=== PATIENT | male | born 1950 | race Caucasian/White ===

== ENCOUNTER 2017-09-09 13:56 | Outpatient (CLI) | payer BC, SELFPAY ==
--- NOTE | 2017-09-10 01:28 | HP ---
DATE OF SERVICE: 09/09/2017 HISTORY OF PRESENT ILLNESS: Mr. Howard Klein is a very pleasant 67-year-old gentleman who presents to the [facility] for evaluation of an ulceration of the left lower leg. The patient states that the ulceration of his left lower leg has been present for approximately two months. He states that he has had erythema, however, of his right and left lower legs for approximately 1 year. He states that blisters preceded the development of the ulceration of his left lower leg. He states that the blisters popped and he began applying Neosporin. He states that he was seen by Dr. Ring and told to discontinue the application of Neosporin. The patient states that the ulceration, however, continued to worsen in its appearance, even after stopping the application of Neosporin to the ulceration. The patient states he has been cleaning the ulceration and treating the ulceration with Bactine spray. He states he has been leaving his wound open to air. PAST MEDICAL HISTORY: 1. Hypertension. 2. History of melanoma of left forearm, status post surgery. PAST SURGICAL HISTORY: 1. Right rotator cuff surgery. 2. Left rotator cuff surgery. 3. Surgery for melanoma of left forearm. 4. Right knee arthroscopic surgery x2. MEDICATIONS: 1. Asacol. 2. Nifedipine 3. Simvastatin. 4. Enalapril. 5. Ibuprofen. ALLERGIES: No known diagnosed allergies. SOCIAL HISTORY: Significant for tobacco use of 1 pack of cigarettes per day for 10 years. The patient states that he stopped smoking 30 years ago. The patient admits to only the occasional consumption of alcohol. FAMILY HISTORY: Negative for diabetes mellitus or coronary artery disease. PHYSICAL EXAMINATION: VITAL SIGNS: Temperature 98.0, pulse 120, respirations 18, blood pressure 145/ 78. GENERAL: A 67-year-old gentleman sitting on chair in examination room in no acute distress. HEENT: Normocephalic, atraumatic. NECK: No nuchal rigidity. CHEST: Clear to auscultation. CARDIOVASCULAR: Regular rate and rhythm. ABDOMEN: Soft. EXTREMITIES: An ulceration of the left posterior lower leg is present, which measures approximately 5.0 x 5.5 cm. No purulent drainage is associated with the wound. Erythema of the left lower leg is present. No maceration of the skin of the periwound is noted. A pedal pulse is palpable on the left. Mild to moderate edema of the left foot and lower leg is present on exam today. NEUROLOGIC: Grossly nonfocal. ASSESSMENT AND PLAN: 1. Chronic venous hypertension with ulcer and inflammation. Silveron, an ABD, Webril, and the 3M Coban two-layer compression system will be applied to the ulceration of the left lower leg today. The patient states he was previously given a prescription for Levaquin by Dr. Ring. The patient has been asked to continue Levaquin as previously prescribed. I will see Mr. Klein again in one week. The patient has been asked to keep the compression wrap applied in clinic today clean and dry until his follow-up visit in 1 week. The patient understands and is in agreement with the preceding treatment plan. 2. Hypertension. 3. History of melanoma of left forearm, status post surgery. [facility]
[2017-09-13] MEDS ORDERED: Lidocaine 2% Jelly 5 ML TUBE ONE (16:53)
== END 2017-09-09 13:57 | disposition home or self-care (01) ==
LOC: WCC 13:56
PROVIDERS: ATTEND Family Medicine
DX: I87.332 Chronic venous hypertension (idiopathic) with ulcer and inflammation of left lower extremity (principal); L97.929 Non-pressure chronic ulcer of unspecified part of left lower leg with unspecified severity; I10 Essential (primary) hypertension
CPT/HCPCS: 29581; 99203; G0463

== ENCOUNTER 2017-09-20 10:12 | Outpatient (CLI) | payer BC ==
[2017-09-20] MEDS ORDERED: Sodium Chloride 0.9% 15 ML NEB ONE (11:11)
[2017-09-20] MEDS ORDERED: Lidocaine 2% Jelly 5 ML TUBE ONE (11:11)
--- NOTE | 2017-09-20 11:11 | PRG ---
DATE OF SERVICE: 09/20/2017 HISTORY: Mr. Howard Klein is a very pleasant 67-year-old gentleman who presents to the [facility] for evaluation of an ulceration of the left lower leg. The patient previously stated that the ulceration of his left lower leg had been present for approximately 2 months when he initially presented to the [facility] Center. He stated that he had had erythema, however, of his right and left lower legs for approximately 1 year at the time of his initial visit to the Wound Center. He stated that blisters preceded the development of the ulceration of his left lower leg. He stated that the blisters popped, and he began applying Neosporin. He stated that he was seen by Dr. Ring and told to discontinue the application of Neosporin. The patient stated that the ulceration, however, continued to worsen in its appearance even after stopping the application of Neosporin to the ulceration. The patient stated he had been cleaning the ulceration and treating the ulceration with Bactine spray prior to being seen in the Wound Center. He stated that he had also been leaving his wound open to air. After being seen in the Wound Center, Silverlon, an ABD, Webril, and the 3M Coban 2-layer compression system were applied to the ulceration. PHYSICAL EXAMINATION: VITAL SIGNS: Temperature 97.7, pulse 115, respirations 19, blood pressure 154/ 98. EXTREMITIES: An ulceration of the left posterior lower leg is present, which measures approximately 2.0 x 1.0 cm. The dimensions of the wound at the time of the patient's last visit were approximately 5.0 x 5.5 cm. No purulent drainage is associated with the wound. No erythema of the skin of the left lower leg is present. No maceration of the skin of the left lower leg is present. A dorsalis pedis pulse is palpable on the left. No significant edema of the left foot or lower leg is present on exam today. ASSESSMENT AND PLAN: 1. Chronic venous hypertension with ulcer and inflammation. Promogran, Silverlon, an ABD, Webril, and the 3M Coban 2-layer compression system will be applied to the ulceration of the left lower leg today. The patient states that he has completed Levaquin as previously prescribed by Dr. Ring. I will see Mr. Klein again in 1 week. 2. Hypertension. 3. History of melanoma of left forearm, status post surgery. [facility]
== END 2017-09-20 10:13 | disposition home or self-care (01) ==
LOC: WCC 10:12
PROVIDERS: ATTEND Family Medicine
DX: I87.332 Chronic venous hypertension (idiopathic) with ulcer and inflammation of left lower extremity (principal); L97.929 Non-pressure chronic ulcer of unspecified part of left lower leg with unspecified severity; I10 Essential (primary) hypertension; Z85.820 Personal history of malignant melanoma of skin; Z98.890 Other specified postprocedural states
CPT/HCPCS: 29581; A4218

== ENCOUNTER 2017-09-27 09:55 | Outpatient (CLI) | payer BC ==
--- NOTE | 2017-09-27 11:25 | PRG ---
DATE OF SERVICE: 09/27/2017 HISTORY: Mr. Alan. Howard Klein is a very pleasant 67-year-old gentleman who presents to the [facility] for evaluation of an ulceration of the left lower leg. The patient previously stated that the ulce ration of his left lower leg had been present for approximately 2 months when he initially presented to the [facility] Center. He stated that he had had erythema; however of his right and left lower legs fo r approximately 1 year at the time of his initial visit to the Wound Center. He stated that blisters preceded the development of the ulceration of his left lower leg. He stated that the blisters juan m d and he began applying Neosporin. He stated that he was seen by Dr. Ring and told to discontinue t he application of Neosporin. The patient stated that the ulceration, however, continued to worsen in its appearance, even after stopping the application of Neosporin to the ulceration. The patient sta ravindra he had been cleaning the ulceration and treating the ulceration with Bactine spray prior to being seen in the Wound Center. He stated that he had also been leaving his wound open to air. After jaja ng seen in the Wound Center, Silverlon, ABD, Webril, and 3M Coban 2 layer compression system were erika lied to the ulceration. Later, Promogran was added to the patient's regimen. PHYSICAL EXAMINATION: VITAL SIGNS: Temperature 97.9, pulse 117, respirations 19, blood pressure 133/89. EXTREMITIES: An ulceration of the left posterior lower leg is present which measures approximately 1 .0 x 1.5 cm. The dimensions of the wound at the time of the patient's last visit were approximately 2.0 x 1.0 cm. No purulent drainage is associated with the wound. No erythema of the skin surroundin g the wound is present. No maceration of the skin of the periwound is noted. A dorsalis pedis pulse is easily palpable on the left. No significant edema of the left foot or lower leg is present on ex am today. ASSESSMENT AND PLAN: 1. Chronic venous hypertension with ulcer and inflammation. Promogran, Silverlon, 4 x 4's, ABD, Web ril, and 3M Coban two-layer compression system will be applied to the ulceration of the left lower le g today. I will see Mr. Klein again in one week. 2. Hypertension. 3. History of melanoma of left forearm, status post surgery.
== END 2017-09-27 09:56 | disposition home or self-care (01) ==
LOC: WCC 09:55
PROVIDERS: ATTEND Family Medicine
DX: I87.332 Chronic venous hypertension (idiopathic) with ulcer and inflammation of left lower extremity (principal); L97.929 Non-pressure chronic ulcer of unspecified part of left lower leg with unspecified severity; I10 Essential (primary) hypertension; Z98.890 Other specified postprocedural states; Z85.820 Personal history of malignant melanoma of skin
CPT/HCPCS: 29581

== ENCOUNTER 2017-10-04 09:46 | Outpatient (CLI) | payer BC ==
--- NOTE | 2017-10-04 11:41 | PRG ---
DATE OF SERVICE: 10/04/2017 HISTORY: Mr. Howard Klein is a very pleasant 67-year-old gentleman who presents to the [facility] Center for evaluation of an ulceration of the left lower leg. The patient previously stated that the ulceration of his left lower leg had been present for approximately 2 months when he initially presented to the W[facility] Center. He stated that he had had erythema, however, of his right and left lower legs for approximately 1 year at the time of his initial visit to the Wound Center. He stated that blisters preceded the development of the ulceration of his left lower leg. After being seen in the Wound Center, Silverlon, an ABD, Webril, and the 3M Coban 2-layer compression system were applied to the ulceration. Later Promogran was added to the patient's regimen. PHYSICAL EXAMINATION: VITAL SIGNS: Temperature 98.3, pulse 90, respirations 19, blood pressure 186/ 106. EXTREMITIES: An ulceration of the left lower leg is present, which measures approximately 1.0 x 0.5 cm. The dimensions of the wound at the time of the patient's last visit were approximately 1.0 x 1.5 cm. No purulent drainage is associated with the wound. No erythema of the skin surrounding the wound is present. No maceration of the skin of the periwound is noted. A dorsalis pedis pulse is easily palpable on the left. No significant edema of the left foot or lower leg is present on exam today. ASSESSMENT AND PLAN: 1. Chronic venous hypertension with ulcer and inflammation. Promogran, Silverlon, an ABD, Webril, and the 3M Coban two-layer compression system will be applied to the ulceration of the left lower leg today. I will see Mr. Klein again in one week. 2. Hypertension. 3. History of melanoma of left forearm, status post surgery. [facility]
[2017-10-04] MEDS ORDERED: Sodium Chloride 0.9% 15 ML NEB ONE (14:20)
== END 2017-10-04 09:47 | disposition home or self-care (01) ==
LOC: WCC 09:46
PROVIDERS: ATTEND Family Medicine
DX: I87.332 Chronic venous hypertension (idiopathic) with ulcer and inflammation of left lower extremity (principal); L97.929 Non-pressure chronic ulcer of unspecified part of left lower leg with unspecified severity; I10 Essential (primary) hypertension; Z85.820 Personal history of malignant melanoma of skin
CPT/HCPCS: 29581; A4218

== ENCOUNTER 2017-10-13 10:27 | Outpatient (CLI) | payer BC ==
[~2017-10-13 10:27] MED LIST: Sodium Chloride 0.9% 15 ML NEB ONE
--- NOTE | 2017-10-13 12:17 | PRG ---
DATE OF SERVICE: 10/13/2017 HISTORY: Mr. Howard Klein is a very pleasant 67-year-old gentleman who presents to the [facility] Center for evaluation of an ulceration of the left lower leg. The patient previously stated that the ulcer ation of his left lower leg had been present for approximately 2 months when he initially presented t o the Wound Center. He stated that he had had erythema; however of his right and left lower legs for approximately 1 year at the time of his initial visit to the Wound Center. He stated that blisters preceded the development of the ulceration of his left lower leg. After being seen in the Wound Cent er, Silverlon, ABD, Webril, and 3M Coban 2 layer compression system were applied to the ulceration. Later, Promogran was added to the patient's regimen. PHYSICAL EXAMINATION: VITAL SIGNS: Temperature 97.7, pulse 99, respirations 18, blood pressure 176/85. EXTREMITIES: An ulceration of the left lower leg is present which measures approximately 1.5 x 0.6 c m. The dimensions of the wound at the time of the patient's last visit were approximately 1.0 x 0.5 cm. No purulent drainage is associated with the wound. No erythema of the skin surrounding the woun d is present. No maceration of the skin of the periwound is noted. A dorsalis pedis pulse is easily palpable on the left. No significant edema of the left foot or lower leg is present on exam today. ASSESSMENT AND PLAN: 1. Chronic venous hypertension with ulcer and inflammation. Promogran, Silverlon, ABD, Webril, and 3M Coban 2-layer compression system will be applied to the ulceration of the left lower leg today. T he patient is to return to the Wound Center for a dressing change in 1 week, also of Promogran, Silve rlon, ABD, Webril, and 3M Coban 2 layer compression system. I will see Mr. Klein again in two weeks. 2. Hypertension. 3. History of melanoma of left forearm, status post surgery.
== END 2017-10-13 10:28 | disposition home or self-care (01) ==
LOC: WCC 10:27
PROVIDERS: ATTEND Family Medicine
DX: I87.332 Chronic venous hypertension (idiopathic) with ulcer and inflammation of left lower extremity (principal); L97.929 Non-pressure chronic ulcer of unspecified part of left lower leg with unspecified severity; Z85.820 Personal history of malignant melanoma of skin; Z98.890 Other specified postprocedural states
CPT/HCPCS: 29581; A4218

== ENCOUNTER 2017-10-20 09:10 | Outpatient (CLI) | payer BC ==
[2017-10-20] MEDS ORDERED: Sodium Chloride 0.9% 15 ML NEB ONE (16:36)
== END 2017-10-20 09:11 | disposition home or self-care (01) ==
LOC: WCC 09:10
PROVIDERS: ATTEND Family Medicine
DX: I87.312 Chronic venous hypertension (idiopathic) with ulcer of left lower extremity (principal); L97.929 Non-pressure chronic ulcer of unspecified part of left lower leg with unspecified severity
CPT/HCPCS: 97605; A4218

== ENCOUNTER 2017-10-27 08:36 | Outpatient (CLI) | payer BC ==
--- NOTE | 2017-10-27 09:19 | PRG ---
DATE OF SERVICE: 10/27/2017 HISTORY: Mr. Howard Klein is a very pleasant 67-year-old gentleman who presents to the [facility] Center for evaluation of an ulceration of the left lower leg. The patient previously stated that the ulcer ation of his left lower leg have been present for approximately 2 months when he initially presented to the Wound Center. He stated that he had had erythema; however of his right and left lower legs fo r approximately 1 year at the time of his initial visit to the Wound Center. He stated that blisters preceded the development of the ulceration of his left lower leg. After being seen in the [facility], Silverlon, ABD, Webril, and 3M Coban 2 layer compression system were applied to the ulceration. Later, Promogran was added to the patient's regimen. PHYSICAL EXAMINATION: VITAL SIGNS: Temperature 97.8, pulse 111, respirations 19, blood pressure 138/70. EXTREMITIES: An ulceration of the left lower leg is present which measures approximately 0.2 x 0.2 c m. The dimensions of the wound at the time of the patient's visit on 10/13/2017 were approximately 1 .5 x 0.6 cm. No purulent drainage is associated with the wound. No erythema of the skin surrounding the wound is present. No maceration of the skin of the periwound is noted. A dorsalis pedis pulse is easily palpable on the left. No significant edema of the left foot or lower leg is present on exa m today. ASSESSMENT AND PLAN: 1. Chronic venous hypertension with ulcer and inflammation. Promogran, Silverlon, Webril, and the 3 M Coban 2-layer compression system will be applied to the ulceration of the left lower leg today. I will see Mr. Klein again in one week. The patient has been asked to bring his compression garments w ith him to his next clinic visit. 2. Hypertension. 3. History of melanoma of left forearm, status post surgery.
[2017-10-29] MEDS ORDERED: Sodium Chloride 0.9% 15 ML NEB ONE (12:30)
== END 2017-10-27 08:37 | disposition home or self-care (01) ==
LOC: WCC 08:36
PROVIDERS: ATTEND Family Medicine
DX: I87.332 Chronic venous hypertension (idiopathic) with ulcer and inflammation of left lower extremity (principal); I10 Essential (primary) hypertension; Z85.820 Personal history of malignant melanoma of skin
CPT/HCPCS: 29581

== ENCOUNTER 2017-11-03 10:44 | Outpatient (CLI) | payer BC ==
--- NOTE | 2017-11-03 12:18 | PRG ---
DATE OF SERVICE: 11/03/2017 HISTORY: Mr. Howard Klien is a very pleasant 67-year-old gentleman who presents to the [facility] for evaluation of an ulceration of the left lower leg. The patient previously stated that the ulce ration of his left lower leg had been present for approximately 2 months when he initially presented to the W[facility] Center. He stated that he had had erythema; however of his right and left lower legs fo r approximately 1 year at the time of his initial visit to the Wound Center. He stated that blisters preceded the development of the ulceration of his left lower leg. After being seen in the [facility], Silverlon, ABD, Webril, and 3M Coban 2 layer compression system were applied to the ulceration. Later, Promogran was added to the patient's regimen. PHYSICAL EXAMINATION: VITAL SIGNS: Temperature 97.8, pulse 103, respirations 19, and blood pressure 142/84. EXTREMITIES: Only one ulceration of the left posterior lower leg is present. The ulceration for whi ch the patient initially presented to the Wound Center has healed completely. Ulceration over the le ft Achilles tendon is present which measures approximately 0.5 x 0.5 cm. No purulent drainage is ass ociated with either wound. No cellulitis of the left lower leg is appreciated. No maceration of the skin of the periwound of either wound is noted. No significant edema of the left foot or lower leg is present on exam today. ASSESSMENT AND PLAN: 1. Chronic venous hypertension with ulcer and inflammation. As stated above, the ulceration for whi ch the patient initially presented to the Wound Center has healed completely. Small ulceration of th e left posterior lower leg is present in addition to an ulceration over the left Achilles tendon whic h measures approximately 0.5 x 0.5 cm. Promogran, Silverlon, Webril, and the 3M Coban 2-layer compre ssion system will be applied to both ulcerations today. The patient has been given a prescription fo r compression garments, knee high, open or closed toe, to yield a compression of 20-30 mmHg. Once he has obtained compression garments, the patient has been instructed to discontinue the compression wr ap applied in clinic today and begin dressing changes in conjunction with the use of his compression garments. The patient has been instructed to apply the compression garments each morning and remove the compression garments at night. The patient is to perform dressing changes of Promogran, Silverce l and bordered gauze on a daily basis after cleansing and irrigation in conjunction with the use of h is compression garments. The patient has been asked to return to clinic should either ulceration kelly l to heal completely or should he have persistent edema of the lower extremities, despite the use of compression garments. The patient states that he will also consider discussing venous ablation with his primary care physician, Dr. Ring. Should he decide to pursue evaluation for venous ablation on the right and/or left. Mr. Klein will be discharged from clinic today with followup on a p.r.n. basi s. Arrangements will also be made for the home delivery of dressing supplies. 2. Hypertension. 3. History of melanoma of left forearm, status post surgery.
== END 2017-11-03 10:45 | disposition home or self-care (01) ==
LOC: WCC 10:44
PROVIDERS: ATTEND Family Medicine
DX: I87.332 Chronic venous hypertension (idiopathic) with ulcer and inflammation of left lower extremity (principal); I10 Essential (primary) hypertension; Z85.820 Personal history of malignant melanoma of skin; Z98.890 Other specified postprocedural states

== ENCOUNTER 2019-01-25 08:32 | Outpatient (CLI) | payer BC ==
--- NOTE | 2019-01-25 10:07 | PRG ---
DATE OF SERVICE: 01/25/2019 HISTORY: Mr. Howard Klein is a very pleasant 68-year-old gentleman, last seen in the Wound Center on 11/03/2017 for a venous ulceration of the left lower leg. Today, the patient presents with 3 venous ulcerations of the right lower leg. The ulceration of the left lower leg healed with application of Silverlon, an ABD, Webril, and the 3M Coban 2 Layer Compression System. Initially, the ulceration was dressed with Silverlon. Later, Promogran was added to the patient's regimen. The patient states that he did not discuss evaluation for venous ablation with Dr. Ring. He states that since his last visit to the Wound Center, he was admitted to [facility] for either stroke or TIA. MEDICATIONS: Presently, the patient's medications consist of, 1. Lipitor. 2. Coreg. 3. Aspirin 81 mg. 4. Enalapril. 5. Triamterene. 6. Mesalamine. 7. Lasix. 8. Amlodipine. PHYSICAL EXAMINATION: VITAL SIGNS: Temperature 97.7, pulse 96, respirations 18, and blood pressure 150/72. EXTREMITIES: Three ulcerations of the left lower leg are present. No purulent drainage is associated with any of the wounds. No cellulitis of the right lower leg is appreciated. No maceration of the skin of the periwound of any of the wounds is noted. A posterior tibial pulse is easily palpable on the right. No significant edema of the right foot or lower leg is appreciated on exam today. Hyperpigmentation of the skin of the right lower leg is noted on exam today. ASSESSMENT AND PLAN: 1. Chronic venous hypertension with ulcers and inflammation. Silverlon, Webril, and the 3M Coban 2 Layer Compression System will be applied to the ulcerations today. No antibiotics will be prescribed today based upon the appearance of the wounds. I will see Mr. Klein again in 1 week. I will discuss referral for evaluation for venous ablation with Dr. Ring. I will see Mr. Klein again in 1 week. The patient understands and is in agreement with the preceding treatment plan. 2. Hypertension. 3. History of melanoma of left forearm, status post surgery. 4. History of transient ischemic attack or cerebrovascular accident, for which the patient was admitted to [facility]. Job ID: [id number]
[2019-01-25] MEDS ORDERED: Sodium Chloride 0.9% 15 ML NEB ONE (15:00)
== END 2019-01-25 08:33 | disposition home or self-care (01) ==
LOC: WCC 08:32
PROVIDERS: ATTEND Family Medicine
DX: I87.332 Chronic venous hypertension (idiopathic) with ulcer and inflammation of left lower extremity (principal); L97.829 Non-pressure chronic ulcer of other part of left lower leg with unspecified severity; Z85.820 Personal history of malignant melanoma of skin; Z86.73 Personal history of transient ischemic attack (TIA), and cerebral infarction without residual deficits
CPT/HCPCS: 97602; 99213; A4218; G0463

== ENCOUNTER 2019-02-01 11:34 | Outpatient (CLI) | payer BC ==
[~2019-02-01 11:34] MED LIST changes: +Lidocaine 2% 11 ML SYR ONE
--- NOTE | 2019-02-01 16:57 | PRG ---
DATE OF SERVICE: 02/01/2019 HISTORY: Mr. Howard Klein is a very pleasant 68-year-old gentleman, who presents to the Wound Center for evaluation of three venous ulcerations of the right lower leg. The patient was previously seen in October 2017 for a venous ulceration of the left lower leg. At the time of the patient's last visit, Silverlon in conjunction with 3M Coban 2 Layer Compression System was applied to the right lower leg venous ulcerations. The patient stated at the time of his last visit that he had been recently admitted to [facility] for either stroke or TIA. PHYSICAL EXAMINATION: VITAL SIGNS: Temperature 98.3, pulse 98, respirations 18, blood pressure 186/88. EXTREMITIES: Three ulcerations of the left lower leg are present. Copious serous drainage is associated with the wounds. Dorsalis pedis pulse and posterior tibial pulse are both palpable on the right. No significant edema of the right foot or lower leg is present on exam today. Hyperpigmentation of the skin of the right lower leg is noted on today's exam. ASSESSMENT AND PLAN: 1. Chronic venous hypertension with ulcers and inflammation. Xeroform gauze, ABDs, Webril, and 3M Coban 2 Layer Compression System will be applied to the ulcerations today. I will see Mr. Klein again in 1 week. I have discussed the treatment plan with Dr. Ring and Mr. Klein will be referred for evaluation for venous ablation. 2. Hypertension. 3. History of melanoma of left forearm, status post surgery. 4. History of transient ischemic attack or cerebrovascular accident for which the patient was recently admitted to [facility]. Job ID: [id number]
== END 2019-02-01 11:35 | disposition home or self-care (01) ==
LOC: WCC 11:34
PROVIDERS: ATTEND Family Medicine
DX: I87.332 Chronic venous hypertension (idiopathic) with ulcer and inflammation of left lower extremity (principal); Z98.890 Other specified postprocedural states; Z85.820 Personal history of malignant melanoma of skin; Z86.73 Personal history of transient ischemic attack (TIA), and cerebral infarction without residual deficits
CPT/HCPCS: 29581; A4218

== ENCOUNTER 2019-02-08 11:33 | Outpatient (CLI) | payer BC ==
[~2019-02-08 11:33] MED LIST changes: -Lidocaine 2% 11 ML SYR ONE
== END 2019-02-08 11:34 | disposition home or self-care (01) ==
LOC: WCC 11:33
PROVIDERS: ATTEND Family Medicine
DX: I87.313 Chronic venous hypertension (idiopathic) with ulcer of bilateral lower extremity (principal); L97.929 Non-pressure chronic ulcer of unspecified part of left lower leg with unspecified severity; L97.919 Non-pressure chronic ulcer of unspecified part of right lower leg with unspecified severity
CPT/HCPCS: 29581; A4218

== ENCOUNTER 2019-02-27 10:34 | Outpatient (CLI) | payer BC ==
[2019-02-27] MEDS ORDERED: Sodium Chloride 0.9% 15 ML NEB ONE (11:11)
--- NOTE | 2019-02-27 12:03 | PRG ---
DATE OF SERVICE: 02/27/2019 HISTORY: MR. Howard Klein is a very pleasant 69-year-old gentleman, who presents to the Wound Center for evaluation of a large ulceration of the right posterior lower leg. The patient states that since his last visit to the Wound Center, he was admitted to [facility]. He states that during his hospital stay, he underwent percutaneous revascularization of the right lower extremity. He states that he also received IV antibiotics for the treatment of his wound during his hospital stay. The patient states that he has been seen in consultation by Dr. Isaias Reeves for evaluation for venous ablation. Apparently, the patient is a candidate for venous ablation on the right. PHYSICAL EXAMINATION: VITAL SIGNS: Temperature 98.1, pulse 98, respirations 19, and blood pressure 183/84. EXTREMITIES: A large ulceration over the right posterior lower leg is present. Granulation tissue is present within the wound margins. No purulent drainage is associated with the wound. No erythema of the skin surrounding the wound is present. No maceration of the skin of the periwound is noted. A dorsalis pedis pulse is palpable on the right. No significant edema of the right foot or lower leg is present on exam today. Hyperpigmentation of the skin of the right lower leg is again noted on exam today. ASSESSMENT AND PLAN: 1. Chronic venous hypertension with ulcer and inflammation. Xeroform gauze, ABD, Webril, and the 3M Coban 2 Layer Compression System will be applied to the ulceration today. I will see Mr. Klein again in 1 week. The patient is to continue p.o. antibiotics as prescribed at the time of discharge from [facility]. The patient states he will keep his followup appointment with Dr. Reeves. 2. Hypertension. 3. History of melanoma of left forearm, status post surgery. 4. History of transient ischemic attack or cerebrovascular accident. Job ID: [id number]
== END 2019-02-27 10:35 | disposition home or self-care (01) ==
LOC: WCC 10:34
PROVIDERS: ATTEND Family Medicine
DX: I87.332 Chronic venous hypertension (idiopathic) with ulcer and inflammation of left lower extremity (principal); L97.229 Non-pressure chronic ulcer of left calf with unspecified severity; Z85.820 Personal history of malignant melanoma of skin; Z86.73 Personal history of transient ischemic attack (TIA), and cerebral infarction without residual deficits; Z98.890 Other specified postprocedural states
CPT/HCPCS: A4218

== ENCOUNTER 2019-03-06 13:30 | Outpatient (CLI) | payer BC ==
[2019-03-06] MEDS ORDERED: Sodium Chloride 0.9% 15 ML NEB ONE (15:00)
--- NOTE | 2019-03-06 17:22 | PRG ---
DATE OF SERVICE: 03/06/2019 HISTORY: Mr. Howard Klein is a very pleasant 69-year-old gentleman, who presents to the wound center for evaluation of a large ulceration of the right posterior lower leg. The patient was recently admitted to [facility] and apparently during his hospital stay, underwent percutaneous revascularization of the right lower extremity. The patient stated that he also received IV antibiotics for the treatment of his wound during his hospital stay. The patient previously stated that he has been seen in consultation by Dr. Isiaas Reeves for evaluation for venous ablation. The patient previously stated that he is a candidate for venous ablation on the right. PHYSICAL EXAMINATION: VITAL SIGNS: Pulse 90, respirations 19, and blood pressure 154/74. EXTREMITIES: A large ulceration over the right posterior lower leg is present, which measures approximately 12.0 x 10.0 cm. Granulation tissue is present within the wound margins. No purulent drainage is associated with the wound. No erythema of the skin surrounding the wound is present. No maceration of the skin of the periwound is noted. A dorsalis pedis pulse is palpable on the right. No significant edema of the right foot or lower leg is present on exam today. Hyperpigmentation of the skin of the right lower leg is again noted on today's exam. ASSESSMENT AND PLAN: 1. Chronic venous hypertension with ulcer and inflammation, Multidex powder followed by an ABD, Webril, and the 3M Coban 2 Layer Compression System will be applied to the ulceration today. I will see Mr. Klein again in 1 week. The patient has been reminded to keep his followup appointment with Dr. Reeves. 2. Hypertension. 3. History of melanoma of left forearm, status post surgery. 4. History of transient ischemic attack or cerebrovascular accident. Job ID: [id number]
== END 2019-03-06 13:31 | disposition home or self-care (01) ==
LOC: WCC 13:30
PROVIDERS: ATTEND Family Medicine
DX: I87.331 Chronic venous hypertension (idiopathic) with ulcer and inflammation of right lower extremity (principal); I10 Essential (primary) hypertension; Z85.820 Personal history of malignant melanoma of skin; Z86.73 Personal history of transient ischemic attack (TIA), and cerebral infarction without residual deficits
CPT/HCPCS: A4218

== ENCOUNTER 2019-03-13 14:21 | Outpatient (CLI) | payer BC ==
[2019-03-13] MEDS ORDERED: Sodium Chloride 0.9% 15 ML NEB ONE (15:00)
[2019-03-13] MEDS ORDERED: Lidocaine 2% PF 100 mg/5 ml Syringe ONE (15:00)
--- NOTE | 2019-03-13 17:23 | PRG ---
DATE OF SERVICE: HISTORY: Mr. Howard Klein is a very pleasant 69-year-old gentleman, who presents to the Wound Center for evaluation of a large ulceration of the right posterior lower leg. The patient was recently admitted to [facility] and apparently during his hospital stay underwent percutaneous revascularization of the right lower extremity. The patient stated that he also received IV antibiotics for the treatment of his wound during his hospital stay. The patient previously stated that he has been seen in consultation by Dr. Isaias Reeves for evaluation for venous ablation. The patient previously stated that he is a candidate for venous ablation on the right. Today, the patient states that he has a followup appointment with Dr. Reeves tomorrow morning. PHYSICAL EXAMINATION: VITAL SIGNS: Temperature 98.0, pulse 72, respirations 20, blood pressure 132/70. EXTREMITIES: Large ulceration over the right posterior lower leg is present which measures approximately 9.0 x 8.0 cm. Granulation tissue is present within the wound margins. No purulent drainage is associated with the wound. No erythema of the skin surrounding the wound is present. No maceration of the skin of the periwound is noted. No significant edema of the right foot or lower leg is present on exam today. Hyperpigmentation of the skin of the right lower leg is again noted on exam today. ASSESSMENT AND PLAN: 1. Chronic venous hypertension with ulcer and inflammation. The dimensions of the wound have decreased since the patient's last visit. The dimensions of the wound at the time of the patient's visit on 03/06/2019 were approximately 12.0 x 10.0 cm Multidex powder followed by an ABD, Webril, and the 3M Coban 2 layer Compression System will be applied to the ulceration at the completion of the patient's visit with Dr. Reeves tomorrow. I will see Mr. Klein again in approximately 1 week. 2. Hypertension. 3. History of melanoma of left forearm, status post surgery. 4. History of transient ischemic attack or cerebrovascular accident. Job ID: [id number]
== END 2019-03-13 14:22 | disposition home or self-care (01) ==
LOC: WCC 14:21
PROVIDERS: ATTEND Family Medicine
DX: I87.331 Chronic venous hypertension (idiopathic) with ulcer and inflammation of right lower extremity (principal); L97.919 Non-pressure chronic ulcer of unspecified part of right lower leg with unspecified severity; I10 Essential (primary) hypertension; Z86.73 Personal history of transient ischemic attack (TIA), and cerebral infarction without residual deficits; Z85.820 Personal history of malignant melanoma of skin
CPT/HCPCS: A4218; J2001

== ENCOUNTER 2019-03-14 12:53 | Outpatient (CLI) | payer BC ==
[2019-03-14] MEDS ORDERED: Sodium Chloride 0.9% 15 ML NEB ONE (18:00)
== END 2019-03-14 12:54 | disposition home or self-care (01) ==
LOC: WCC 12:53
PROVIDERS: ATTEND Family Medicine
DX: I87.313 Chronic venous hypertension (idiopathic) with ulcer of bilateral lower extremity (principal); L97.929 Non-pressure chronic ulcer of unspecified part of left lower leg with unspecified severity; L97.919 Non-pressure chronic ulcer of unspecified part of right lower leg with unspecified severity
CPT/HCPCS: A4218

== ENCOUNTER 2019-03-20 10:38 | Outpatient (CLI) | payer BC ==
--- NOTE | 2019-03-20 09:58 | PRG ---
DATE OF SERVICE: 03/20/2019 HISTORY: Mr. Howard Klein is a very pleasant 69-year-old gentleman, who presents to the wound center for evaluation of a large ulceration of the right posterior lower leg. The patient was recently admitted to [facility], and apparently during his hospital stay, underwent percutaneous revascularization of the right lower extremity. The patient stated that he also received IV antibiotics for the treatment of his wound during his hospital stay. The patient has been seen in consultation by Dr. Isaias Reeves for evaluation for venous ablation. PHYSICAL EXAMINATION: VITAL SIGNS: Temperature 98.0, pulse 82, respirations 22, blood pressure 139/75. EXTREMITIES: A large ulceration over the right posterior lower leg is present which measures approximately 5.0 x 5.5 cm. Granulation tissue is present within the wound margins. No purulent drainage is associated with the wound. No erythema of the skin surrounding the wound is present. No maceration of the skin of the periwound is noted. No significant edema of the right foot or lower leg is present on exam today. A dorsalis pedis pulse and posterior tibial pulse are both palpable on the right. The dimensions of the wound at the time of the patient's last visit were approximately 9.0 x 8.0 cm. ASSESSMENT AND PLAN: 1. Chronic venous hypertension with ulcer and inflammation. The dimensions of the wound have again decreased since the patient's last visit. Multidex powder followed by an ABD, Webril, and the 3M Coban 2 Layer Compression System will be applied to the ulceration today. The patient will return to the wound center for a dressing change in 1 week. I will see Mr. Klein again in 2 weeks. 2. Hypertension. 3. History of melanoma of left forearm, status post surgery. 4. History of transient ischemic attack or cerebrovascular accident. Job ID: [id number]
[2019-03-20] MEDS ORDERED: Sodium Chloride 0.9% 15 ML NEB ONE (15:00)
== END 2019-03-20 10:39 | disposition home or self-care (01) ==
LOC: WCC 10:38
PROVIDERS: ATTEND Family Medicine
DX: I87.331 Chronic venous hypertension (idiopathic) with ulcer and inflammation of right lower extremity (principal); L97.919 Non-pressure chronic ulcer of unspecified part of right lower leg with unspecified severity; I10 Essential (primary) hypertension; Z86.73 Personal history of transient ischemic attack (TIA), and cerebral infarction without residual deficits; Z85.820 Personal history of malignant melanoma of skin
CPT/HCPCS: 29581; A4218

== ENCOUNTER 2019-03-28 09:11 | Outpatient (CLI) | payer BC ==
[2019-03-28] MEDS ORDERED: Sodium Chloride 0.9% 15 ML NEB ONE (15:00)
== END 2019-03-28 09:12 | disposition home or self-care (01) ==
LOC: WCC 09:11
PROVIDERS: ATTEND Family Medicine
DX: I87.313 Chronic venous hypertension (idiopathic) with ulcer of bilateral lower extremity (principal); L97.929 Non-pressure chronic ulcer of unspecified part of left lower leg with unspecified severity; L97.919 Non-pressure chronic ulcer of unspecified part of right lower leg with unspecified severity
CPT/HCPCS: A4218

== ENCOUNTER 2019-04-04 09:38 | Outpatient (CLI) | payer BC | END 2019-04-04 09:39 | disposition home or self-care (01) | LOC: WCC 09:38 | PROVIDERS: ATTEND Family Medicine | DX: I87.313 Chronic venous hypertension (idiopathic) with ulcer of bilateral lower extremity (principal); L97.929 Non-pressure chronic ulcer of unspecified part of left lower leg with unspecified severity; L97.919 Non-pressure chronic ulcer of unspecified part of right lower leg with unspecified severity | CPT/HCPCS: A4218 ==

== ENCOUNTER 2019-04-13 15:07 | Outpatient (CLI) | payer BC ==
[~2019-04-13 15:07] MED LIST changes: +Lidocaine 2% PF 100 mg/5 ml Syringe ONE
--- NOTE | 2019-04-13 17:12 | PRG ---
DATE OF SERVICE: 04/13/2019 HISTORY: Mr. Howard Klein is a very pleasant 69-year-old gentleman, who presents to the Wound Center for evaluation of a large ulceration of the right posterior lower leg. The patient was previously admitted to [facility], and apparently during the patient's hospital stay, Mr. Klein underwent percutaneous revascularization of the right lower extremity. The patient stated that he also received IV antibiotics for the treatment of his wound during his hospital stay. The patient has been seen in consultation by Dr. Isaias Reeves for evaluation for venous ablation. Today, the patient states that he is to undergo venous ablation on the right by Dr. Reeves in the future. PHYSICAL EXAMINATION: VITAL SIGNS: Temperature 98.2, pulse 77, respirations 19, and blood pressure 135/77. EXTREMITIES: A large ulceration over the right posterior lower leg is present, which measures approximately 3.0 x 3.8 cm. The dimensions of the wound at the time of the patient's visit on 04/03/2019 were approximately 5.0 x 4.0 cm. Granulation tissue is present within the wound margins. No purulent drainage is associated with the wound. No erythema of the skin surrounding the wound is present. No maceration of the skin of the periwound is noted. No significant edema of the right foot or lower leg is present on exam today. ASSESSMENT AND PLAN: 1. Chronic venous hypertension with ulcer and inflammation. The dimensions of the wound continue to decrease. Multidex powder followed by an ABD, Webril, and the 3M Coban 2 Layer Compression System will be applied to the ulceration today. As stated above, the patient is to undergo venous ablation by Dr. Reeves in the future. The patient states that he is unsure of the date and time of his appointment for venous ablation. I will see Mr. Klein again in 1 week. Arrangements will be made for the home delivery of wraparound compression. 2. Hypertension. 3. History of melanoma of left forearm, status post surgery. 4. History of transient ischemic attack or cerebrovascular accident. Job ID: [id number]
== END 2019-04-13 15:08 | disposition home or self-care (01) ==
LOC: WCC 15:07
PROVIDERS: ATTEND Family Medicine
DX: I87.331 Chronic venous hypertension (idiopathic) with ulcer and inflammation of right lower extremity (principal); I10 Essential (primary) hypertension; Z85.820 Personal history of malignant melanoma of skin; Z86.73 Personal history of transient ischemic attack (TIA), and cerebral infarction without residual deficits
CPT/HCPCS: 29581; A4218; J2001

== ENCOUNTER 2019-04-20 09:30 | Outpatient (CLI) | payer BC ==
[~2019-04-20 09:30] MED LIST changes: -Lidocaine 2% PF 100 mg/5 ml Syringe ONE
--- NOTE | 2019-04-20 11:58 | PRG ---
DATE OF SERVICE: 04/20/2019 HISTORY: Mr. Howard Klein is a very pleasant 69-year-old gentleman who presents to the Wound Center for evaluation of a large ulceration of the right posterior lower leg. The patient was previously admitted to [facility] and apparently during the patient's hospital stay, Mr. Klein underwent percutaneous revascularization of the right lower extremity. The patient stated that he also received IV antibiotics for the treatment of his wound during his hospital stay. The patient has been seen in consultation by Dr. Isaias Reeves for evaluation for venous ablation. Again today, the patient states he is to undergo venous ablation on the right by Dr. Reeves in the future. PHYSICAL EXAMINATION: VITAL SIGNS: Temperature 97.9, pulse 90, respirations 19, and blood pressure 169/87. EXTREMITIES: An ulceration over the right posterior lower leg is present, which measures approximately 2.5 x 1.5 cm. The dimensions of the wound at the time of the patient's visit on 04/13/2019 were approximately 3.0 x 3.8 cm. Granulation tissue is present within the wound margins. No purulent drainage is associated with the wound. No erythema of the skin surrounding the wound is present. No maceration of the skin of the periwound is noted. No significant edema of the right foot or lower leg is present on exam today. ASSESSMENT AND PLAN: 1. Chronic venous hypertension with ulcer and inflammation. The dimensions of the wound continue to decrease rapidly. Multidex powder followed by an ABD, Webril, and the 3M Coban 2 Layer Compression System will be applied to the ulceration today. As stated above, the patient is to undergo venous ablation by Dr. Reeves in the future. The patient will return to the Wound Center for dressing change in 1 week. I will see Mr. Klein after he returns from his trip to [place]. Arrangements have been made for the home delivery of wraparound compression, and the patient states that he indeed has received his wraparound compression. 2. Hypertension. 3. History of melanoma of left forearm, status post surgery. 4. History of transient ischemic attack or cerebrovascular accident. Job ID: [id number]
== END 2019-04-20 09:31 | disposition home or self-care (01) ==
LOC: WCC 09:30
PROVIDERS: ATTEND Family Medicine
DX: I87.313 Chronic venous hypertension (idiopathic) with ulcer of bilateral lower extremity (principal); L97.929 Non-pressure chronic ulcer of unspecified part of left lower leg with unspecified severity; L97.919 Non-pressure chronic ulcer of unspecified part of right lower leg with unspecified severity
CPT/HCPCS: 29581; A4218

== ENCOUNTER 2019-04-27 10:58 | Outpatient (CLI) | payer BC | END 2019-04-27 10:59 | disposition home or self-care (01) | LOC: WCC 10:58 | PROVIDERS: ATTEND Family Medicine | DX: I87.313 Chronic venous hypertension (idiopathic) with ulcer of bilateral lower extremity (principal); L97.929 Non-pressure chronic ulcer of unspecified part of left lower leg with unspecified severity; L97.919 Non-pressure chronic ulcer of unspecified part of right lower leg with unspecified severity | CPT/HCPCS: 29581; A4218 ==

== ENCOUNTER 2019-05-02 13:03 | Outpatient (CLI) | payer BC | END 2019-05-02 13:04 | disposition home or self-care (01) | LOC: WCC 13:03 | PROVIDERS: ATTEND Family Medicine | DX: I87.313 Chronic venous hypertension (idiopathic) with ulcer of bilateral lower extremity (principal); L97.929 Non-pressure chronic ulcer of unspecified part of left lower leg with unspecified severity; L97.919 Non-pressure chronic ulcer of unspecified part of right lower leg with unspecified severity | CPT/HCPCS: 29581 ==

== ENCOUNTER 2019-05-10 11:18 | Outpatient (CLI) | payer BC ==
--- NOTE | 2019-05-10 13:39 | PRG ---
DATE OF SERVICE: 05/10/2019 HISTORY: Mr. Howard Klein is a very pleasant 69-year-old gentleman, who presents to the Wound Center for evaluation of an ulceration of the right posterior lower leg. The patient was previously admitted to [facility], and apparently during the patient's hospital stay, Mr. Klein underwent percutaneous revascularization of the right lower extremity. The patient stated that he also received IV antibiotics for the treatment of his wound during his hospital stay. The patient has been seen in consultation by Dr. Isaias Reeves for evaluation for venous ablation. Today, the patient states that he has been scheduled for venous ablation on the right by Dr. Reeves. PHYSICAL EXAMINATION: VITAL SIGNS: Temperature 98.2, pulse 86, respirations 18, and blood pressure 172/95. EXTREMITIES: The ulceration over the right posterior lower leg has healed completely. No significant edema of the right foot or lower leg is present on exam today. ASSESSMENT AND PLAN: 1. Chronic venous hypertension with ulcer and inflammation. As stated above, the ulceration has completely healed. Also as stated above, the patient has been scheduled to undergo venous ablation by Dr. Reeves on the right. The patient has been instructed to begin utilizing wraparound compression on the right. Arrangements were previously made for the home delivery of wraparound compression. Mr. Klein will be discharged from clinic today with followup on a p.r.n. basis. Arrangements were also previously made for in-home lymphedema therapy with a pneumatic pump. The patient has also been given a prescription for Synalar Ointment 0.025% to be used as needed for stasis dermatitis. 2. Hypertension. 3. History of melanoma of left forearm, status post surgery. 4. History of transient ischemic attack or cerebrovascular accident. Job ID: [id number]
== END 2019-05-10 11:19 | disposition home or self-care (01) ==
LOC: WCC 11:18
PROVIDERS: ATTEND Family Medicine
DX: I87.331 Chronic venous hypertension (idiopathic) with ulcer and inflammation of right lower extremity (principal); L97.919 Non-pressure chronic ulcer of unspecified part of right lower leg with unspecified severity; I10 Essential (primary) hypertension; Z86.73 Personal history of transient ischemic attack (TIA), and cerebral infarction without residual deficits; Z85.820 Personal history of malignant melanoma of skin
CPT/HCPCS: 29581

== ENCOUNTER 2022-08-29 20:25 | Inpatient (IN) | payer BC, MEDICARE ==
[~2022-08-29 20:25] MED LIST changes: +Iopamidol-370 76% 500 ML 1 ML ONE; -Sodium Chloride 0.9% 15 ML NEB ONE
[2022-08-29] MEDS ORDERED: EPINEPHrine 1 MG/10 ML Abboject SYRINGE ONE (20:29)
[2022-08-29] MEDS ORDERED: Sodium Bicarb 50 MEQ/50 ML Abboject 8.4% SYRINGE ONE (20:29)
[2022-08-29] MEDS ORDERED: Calcium Chloride 1 GM/10 ML Abboject SYRINGE ONE (20:29)
[2022-08-29] MEDS ORDERED: Lidocaine 1% (PF) 30 ML VIAL ONE (20:43)
[2022-08-29] MEDS ORDERED: Nitroglycerin 100MG/250ML BOT 0 ML ONE (20:43)
[2022-08-29] MEDS ORDERED: Fentanyl CADD 100 ML IV SCH (20:45)
[2022-08-29 20:59] LABS: Actual Bicarbonate (HCO3a) 16.9 mEq/L (22-28); Analyzer IN Cardio ER; Base Excess (BEa) -15.2 mEq/L (-2.0 to +3.0); Calcium, Ionized (arterial) 1.23 mmol/L (1.12-1.30); Carboxyhemoglobin (COHb) 0.1 gm% (0.0-3.0); Hemoglobin (Hb) 12.4 g/dL (14.0-18.0); O2 Tension (PaO2), arterial 93.1 mmHg (> 70.0); Potassium - ABG Lab 2.91 mmol/L (3.70-5.30)
[2022-08-29 21:01] LABS: CO2 Tension 72.3 mmHg (35.0-45.0); Puncture Site LRA; pH, Arterial 6.99 (7.35-7.45)
[2022-08-29 21:02] LABS: ALV-art Gradient 529.525 mmHg (0-20)
[2022-08-29] MEDS ORDERED: Cefepime 2 GM VIAL ONE (21:06)
[2022-08-29] MEDS ORDERED: Aspirin 300 MG Suppository ONE (21:06)
[2022-08-29 21:07] LABS: #Basophils 0.1 thou/uL (0.0-0.2); #Eosinphils 0.2 thou/uL (0.0-0.7); #Lymphocytes 5.1 thou/uL (1.20-3.40); #Monocytes 0.9 thou/uL (0.11-0.59); #Neutrophils 11.9 thou/uL (1.40-6.50); %Basophils 0.4 % (0.0-1.0); %Eosinophils 1.3 % (0.0-10.0); %Monocytes 4.8 % (0.0-10.0); %Neutrophils 65.4 % (42.0-75.0); Hemoglobin 11.5 g/dL (14.0-18.0); Mean Corpuscular HGB CONC 31.3 g/dL (32.0-36.0); Mean Corpuscular Hemoglobin 26.2 pg (27.0-31.0); Mean Corpuscular Volume 83.6 fl (78.0-98.0); Mean Platelet Volume 8.4 fL (7.4-10.4); Platelet Count 230 10x3/uL (130-400); RBC Distribution Width 14.7 % (11.5-14.5); Red Blood Cell (RBC) Count 4.39 mill/uL (4.70-6.10); White Blood Cell (WBC) Count 18.1 10x3/uL (4.8-10.8)
[2022-08-29 21:18] LABS: INR-International Normal Ratio 1.3; PTT 32.4 sec (22.9-36.1); Prothrombin Time 17.2 sec (12.0-14.7)
[2022-08-29] MEDS ORDERED: NOREPINEPHRINE 8 MG/250 ML-D5W 250 ML ONE (21:27)
[2022-08-29 21:28] LABS: ALT (SGPT) 12 U/L (8-55); AST (SGOT) 28 U/L (5-34); Albumin 3.3 g/dL (3.4-4.8); Alkaline Phosphatase 138 U/L (40-110); Anion Gap 23 mmol/L (10-20); BUN (Urea Nitrogen) 21 mg/dL (8.4-25.7); Bilirubin, Total 0.2 mg/dL (0.2-1.2); CK (CPK) 69 U/L (30-200); Calc. Creatinine Clearance 0 mL/min (70-130); Calcium 8.7 mg/dL (7.8-10.44); Carbon Dioxide 17 mmol/L (23-31); Chloride 104 mmol/L (98-107); Estimated GFR 37; Globulin 3.1 g/dL (2.4-3.5); Glucose 344 mg/dL (80-115); Lipase 52 U/L (8-78); Magnesium 2.3 mg/dL (1.6-2.6); Protein, Total 6.4 g/dL (5.8-8.1); Sodium 141 mmol/L (136-145)
[2022-08-29] MEDS ORDERED: VANCOMYCIN 2 GRAM/500 ML BAG 2 GM in Premix Bag 1 BAG IVPB SCH (21:30)
[2022-08-29 21:33] LABS: Bacteria/HPF 4+ HPF (None Seen); Bilirubin Negative (Negative); Blood, Urine 2+ (Negative); Clarity Extra Turbid (Clear); Glucose, Urine (Dipstick) 500 mg/dL (Negative); Ketone, Urine Negative (Negative); Leukocyte 250 Leu/uL (Negative); Nitrite Negative (Negative); Protein, Urine (Dipstick) 300 mg/dL (Neg-Trace); RBC/HPF 21-50 HPF (0-3); Specific Gravity, Urine 1.014 (1.002-1.036); Sperm/HPF 3+ HPF (None Seen); Squamous Epithelial None Seen HPF (0-3); Urobilinogen Normal mg/dL (Less than 2); WBC/HPF Greater than 50 HPF (0-3); pH, Urine 6.5 (5.0-9.0)
[2022-08-29 21:34] LABS: D-Dimer Test Greater than 20.00 *mcg/mL (0.27-0.43)
[2022-08-29 21:50] LABS: CKMB 1.9 ng/mL (0-6.6)
[2022-08-29 22:16] LABS: SARS-CoV-2 NAA Rapid Test Not Detected (NotDetected)
[2022-08-29] MEDS ORDERED: Propofol 1,000 MG/100 ML VIAL IV ONE (22:52)
[2022-08-29] MEDS ORDERED: Ventilator Sedation Protocol 1 EACH FS ONE (22:56)
[2022-08-29] MEDS ORDERED: Midazolam HCl 2 mg/2 ml Vial SLOW IVP PRN (23:03)
[2022-08-29] MEDS ORDERED: Propofol BOLUS 1,000 MG/100 ML VIAL IV PRN (23:15)
[2022-08-29] MEDS ORDERED: Morphine 2 MG/ML VIAL SLOW IVP PRN (23:15)
[2022-08-29] MEDS ORDERED: DISCONTINUE PREVIOUS NARCOTIC PAIN MEDICATIONS AND BENZODIAZEPINES FS SCH (23:15)
[2022-08-29] MEDS ORDERED: Fentanyl BOLUS 250 ML IVPB PRN (23:15)
[2022-08-29] MEDS ORDERED: Potassium Chloride 40 MEQ in Premix Bag 1 BAG IVPB SCH (23:15)
[2022-08-29] MEDS: Propofol 1,000 MG/100 ML VIAL IV PRN (23:22)
[2022-08-29] MEDS ORDERED: Dextrose 5% in Water 1,000 ML IV PRN (23:23)
[2022-08-29] MEDS ORDERED: HumaLOG 300 UNITS/3 ML VIAL SC PRN ×2 (23:23)
[2022-08-29] MEDS ORDERED: Dextrose 50% Abboject 50 ML SYRINGE SLOW IVP PRN (23:23)
[2022-08-29] MEDS: Thiamine HCl 200 MG/2 ML VIAL SLOW IVP SCH (23:25)
[2022-08-29] MEDS ORDERED: Ondansetron ODT 4 MG TAB PO PRN (23:29)
[2022-08-29] MEDS ORDERED: Lorazepam 1 MG TAB PO PRN (23:29)
[2022-08-29] MEDS ORDERED: Lorazepam 2 MG/ML VIAL IM PRN (23:29)
[2022-08-29] MEDS ORDERED: Electrolyte Replacement Protocol 1 EACH FS SCH (23:30)
[2022-08-29] MEDS ORDERED: NOREPINEPHRINE 8 MG/250 ML-D5W 250 ML IVPB SCH (23:30)
[2022-08-29 23:43] LABS: #Eosinphils 0.1 thou/uL (0.0-0.7); #Lymphocytes 0.8 thou/uL (1.20-3.40); #Monocytes 0.7 thou/uL (0.11-0.59); #Neutrophils 15.3 thou/uL (1.40-6.50); %Basophils 0.1 % (0.0-1.0); %Eosinophils 0.7 % (0.0-10.0); %Lymphocytes 4.7 % (21.0-51.0); %Monocytes 3.9 % (0.0-10.0); %Neutrophils 90.6 % (42.0-75.0); Hemoglobin 11.1 g/dL (14.0-18.0); Mean Corpuscular HGB CONC 30.8 g/dL (32.0-36.0); Mean Corpuscular Hemoglobin 25.7 pg (27.0-31.0); Mean Corpuscular Volume 83.6 fl (78.0-98.0); Mean Platelet Volume 7.8 fL (7.4-10.4); Platelet Count 232 10x3/uL (130-400); RBC Distribution Width 14.7 % (11.5-14.5); White Blood Cell (WBC) Count 16.8 10x3/uL (4.8-10.8)
[2022-08-29] MEDS ORDERED: Dextrose 5%-Lactated Ringers 1,000 ML IV SCH (23:45)
[2022-08-29] MEDS ORDERED: Sodium Chloride 0.9% 1,000 ML IV SCH (23:45)
[2022-08-29] MEDS ORDERED: Magnesium 2 GM/50 ML(in water) 2 GM in Premix Bag 1 BAG IVPB SCH (23:59)
[2022-08-30 00:02] LABS: Phosphorus 5.8 mg/dL (2.3-4.7)
[2022-08-30 00:18] LABS: Troponin I 0.148 ng/mL (< 0.028)
[2022-08-30] MEDS ORDERED: Amiodarone 150 MG, Admixture Fee 1 EACH in Dextrose 5% in Water 100 ML IVPB SCH (00:30)
[2022-08-30 00:32] LABS: Amphetamine Not Detected (NotDetected); Barbiturates Screen Not Detected (NotDetected); Benzodiazepine Screen Not Detected (NotDetected); Cocaine Metabolite Screen Not Detected (NotDetected); Methadone Not Detected (NotDetected); Methamphetamine Not Detected (NotDetected); Opiate Screen Not Detected (NotDetected); Oxycodone Screen Not Detected (NotDetected); Phencyclidine (PCP) Not Detected (NotDetected); THC/Cannabinoid Screen Not Detected (NotDetected); Tricyclic Screen Not Detected (NotDetected)
[2022-08-30 00:36] LABS: Actual Bicarbonate (HCO3a) 24.6 mEq/L (22-28); Base Excess (BEa) -0.9 mEq/L (-2.0 to +3.0); CO2 Tension 44.1 mmHg (35.0-45.0); Carboxyhemoglobin (COHb) 0.3 gm% (0.0-3.0); Hemoglobin (Hb) 11.5 g/dL (14.0-18.0); O2 Tension (PaO2), arterial 83.7 mmHg (> 70.0); Potassium - ABG Lab 3.34 mmol/L (3.70-5.30); pH, Arterial 7.36 (7.35-7.45)
[2022-08-30 00:36] LABS: Legionella Urinary Ag Negative (Negative); Strep pneumo Urine Ag NEGATIVE (NEGATIVE)
[2022-08-30 00:37] LABS: ALV-art Gradient 431.575 mmHg (0-20); Puncture Site RRA
[2022-08-30] MEDS: Amiodarone 450 MG in Dextrose 5% in Water 250 ML IVPB SCH ×2 (00:41→22:33)
[2022-08-30] MEDS: Doxycycline 100 MG in Sodium Chloride 0.9% 100 ML IVPB SCH ×2 (01:41→12:50)
[2022-08-30] MEDS: Lorazepam 1 MG TAB PO SCH ×4 (01:43→18:19)
[2022-08-30] MEDS: Propofol 1,000 MG/100 ML VIAL IV PRN ×6 (03:31→22:59)
[2022-08-30 04:31] LABS: #Lymphocytes 1.1 thou/uL (1.20-3.40); #Neutrophils 16.8 thou/uL (1.40-6.50); %Basophils 0.2 % (0.0-1.0); %Eosinophils 0.2 % (0.0-10.0); %Lymphocytes 5.8 % (21.0-51.0); %Monocytes 5.3 % (0.0-10.0); %Neutrophils 88.5 % (42.0-75.0); Hemoglobin 10.3 g/dL (14.0-18.0); Mean Corpuscular HGB CONC 31.7 g/dL (32.0-36.0); Mean Corpuscular Hemoglobin 26.1 pg (27.0-31.0); Mean Corpuscular Volume 82.6 fl (78.0-98.0); Mean Platelet Volume 8.2 fL (7.4-10.4); Platelet Count 253 10x3/uL (130-400); RBC Distribution Width 14.5 % (11.5-14.5); Red Blood Cell (RBC) Count 3.95 mill/uL (4.70-6.10)
[2022-08-30 04:48] LABS: Lactic Acid 3.5 mmol/L (0.5-2.2)
[2022-08-30 04:51] LABS: Hemoglobin A1c 5.5 % (4.0-6.0)
[2022-08-30 04:56] LABS: ALT (SGPT) 20 U/L (8-55); AST (SGOT) 39 U/L (5-34); Alkaline Phosphatase 103 U/L (40-110); Anion Gap 16 mmol/L (10-20); BUN (Urea Nitrogen) 25 mg/dL (8.4-25.7); Bilirubin, Total 0.3 mg/dL (0.2-1.2); Calc. Creatinine Clearance 54 mL/min (70-130); Calcium 7.8 mg/dL (7.8-10.44); Carbon Dioxide 22 mmol/L (23-31); Chloride 107 mmol/L (98-107); Estimated GFR 35; Globulin 2.6 g/dL (2.4-3.5); Glucose 146 mg/dL (80-115); Magnesium 2.2 mg/dL (1.6-2.6); Potassium 3.5 mmol/L (3.5-5.1); Protein, Total 5.6 g/dL (5.8-8.1); Sodium 141 mmol/L (136-145)
[2022-08-30 05:00] LABS: Troponin I 0.762 ng/mL (< 0.028)
[2022-08-30 07:35] LABS: Actual Bicarbonate (HCO3a) 23.3 mEq/L (22-28); Base Excess (BEa) -0.2 mEq/L (-2.0 to +3.0); CO2 Tension 33.8 mmHg (35.0-45.0); Calcium, Ionized (arterial) 1.06 mmol/L (1.12-1.30); Carboxyhemoglobin (COHb) 0.3 gm% (0.0-3.0); Hemoglobin (Hb) 10.7 g/dL (14.0-18.0); O2 Tension (PaO2), arterial 76.2 mmHg (> 70.0); Potassium - ABG Lab 3.62 mmol/L (3.70-5.30); pH, Arterial 7.46 (7.35-7.45)
[2022-08-30 07:37] LABS: Puncture Site LRA
[2022-08-30] MEDS ORDERED: Aspirin 81 mg Enteric Coated Tablet PER TUBE SCH (09:00)
[2022-08-30] MEDS ORDERED: Potassium Chloride 40 MEQ in Premix Bag 1 BAG IVPB SCH (09:00)
[2022-08-30] MEDS ORDERED: Vancomycin 1 GM in Premix Bag 1 BAG IVPB SCH (09:00)
[2022-08-30] MEDS: Sodium Chloride 0.9% 1,000 ML IV SCH (09:39)
[2022-08-30] MEDS: Heparin 5,000 UNITS/ML VIAL SC SCH ×3 (09:40→20:15)
[2022-08-30] MEDS: Pantoprazole 40 MG VIAL IVP SCH (09:40)
[2022-08-30] MEDS: Multivit, Therapeutic 1 TAB PO SCH (09:41)
[2022-08-30] MEDS: Cefepime 1 GM in Sodium Chloride 0.9% 100 ML IVPB SCH ×2 (09:42→20:14)
[2022-08-30] MEDS: Folic Acid 1 MG TAB PER TUBE SCH (09:42)
[2022-08-30 16:28] LABS: Chlam.trachomatis by PCR,Urine Not Detected (NotDetected)
[2022-08-30] MEDS ORDERED: levETIRAcetam 500 MG/5 ML VIAL SLOW IVP SCH (17:45)
[2022-08-30 20:14] VITALS: TEMP 98.5
[2022-08-30] MEDS ORDERED: VANCOMYCIN 1.75 GM/500 ML BAG 1.75 GM in Premix Bag 1 BAG IVPB SCH (21:00)
[2022-08-30] MEDS ORDERED: Lorazepam 1 MG TAB PO PRN (23:29)
[2022-08-31] MEDS: Lorazepam 1 MG TAB PO SCH ×3 (00:29→11:18)
[2022-08-31] MEDS: Thiamine HCl 200 MG/2 ML VIAL SLOW IVP SCH (00:29)
[2022-08-31] MEDS: Sodium Chloride 0.9% 1,000 ML IV SCH (00:30)
[2022-08-31] MEDS: Doxycycline 100 MG in Sodium Chloride 0.9% 100 ML IVPB SCH (00:37)
[2022-08-31] MEDS: Propofol 1,000 MG/100 ML VIAL IV PRN ×3 (02:38→13:00)
[2022-08-31] MEDS ORDERED: Aspirin Chewable 81 MG TAB PER TUBE SCH (09:00)
[2022-08-31] MEDS ORDERED: levETIRAcetam 500 MG/5 ML VIAL SLOW IVP SCH ×2 (09:00→21:00)
[2022-08-31] MEDS: Pantoprazole 40 MG VIAL IVP SCH (10:05)
[2022-08-31] MEDS: Cefepime 1 GM in Sodium Chloride 0.9% 100 ML IVPB SCH (10:06)
[2022-08-31] MEDS: Heparin 5,000 UNITS/ML VIAL SC SCH (10:06)
[2022-08-31] MEDS: Multivit, Therapeutic 1 TAB PO SCH (10:07)
[2022-08-31] MEDS: Folic Acid 1 MG TAB PER TUBE SCH (10:07)
[2022-08-31] MEDS ORDERED: Morphine 4 MG/ML VIAL SLOW IVP PRN (10:14)
[2022-08-31] MEDS ORDERED: Lorazepam 2 MG/ML VIAL SLOW IVP PRN (10:24)
[2022-08-31 11:12] VITALS: BMI 33.7
[2022-08-31 14:37] VITALS: BP 129/87
[2022-08-31] MEDS ORDERED: Lorazepam 1 MG TAB PO PRN (23:29)
[2022-08-31] MEDS ORDERED: Lorazepam 0.5 MG TAB PO SCH (23:30)
[2022-09-01] MEDS ORDERED: Lorazepam 0.5 MG TAB PO PRN (23:29)
[2022-09-02] MEDS ORDERED: FLU VACC QS2022-23(65YR UP)/PF 240 MCG/0.7 ML SYRINGE IM ONE (09:00)
== END 2022-08-31 16:49 | disposition hospice, inpatient (51) | DRG 871 ==
LOC: ERS 20:25 → CCU 21:33
PROVIDERS: ADMIT Student in an Organized Health Care Education/Training Program; ATTEND Hospitalist
PROC: 5A1945Z Respiratory Ventilation, 24-96 Consecutive Hours (ICD-10-PCS; principal; 2022-08-29)
PROC: 0D9670Z Drainage of Stomach with Drainage Device, Via Natural or Artificial Opening (ICD-10-PCS; 2022-08-29)
PROC: 06HY33Z Insertion of Infusion Device into Lower Vein, Percutaneous Approach (ICD-10-PCS; 2022-08-29)
PROC: 0BH17EZ Insertion of Endotracheal Airway into Trachea, Via Natural or Artificial Opening (ICD-10-PCS; 2022-08-29)
PROC: 3E043XZ Introduction of Vasopressor into Central Vein, Percutaneous Approach (ICD-10-PCS; 2022-08-29)
PROC: 3E03329 Introduction of Other Anti-infective into Peripheral Vein, Percutaneous Approach (ICD-10-PCS; 2022-08-29)
DX: A41.9 Sepsis, unspecified organism (principal); I21.A1 Myocardial infarction type 2; I46.8 Cardiac arrest due to other underlying condition; J69.0 Pneumonitis due to inhalation of food and vomit; J96.01 Acute respiratory failure with hypoxia; J96.02 Acute respiratory failure with hypercapnia; J18.9 Pneumonia, unspecified organism; R65.21 Severe sepsis with septic shock; N17.9 Acute kidney failure, unspecified; N39.0 Urinary tract infection, site not specified; G93.1 Anoxic brain damage, not elsewhere classified; E87.20 Acidosis, unspecified; M96.A3 Multiple fractures of ribs associated with chest compression and cardiopulmonary resuscitation; Z66 Do not resuscitate; Z20.822 Contact with and (suspected) exposure to COVID-19; Z87.891 Personal history of nicotine dependence; I73.9 Peripheral vascular disease, unspecified; K43.9 Ventral hernia without obstruction or gangrene; I12.9 Hypertensive chronic kidney disease with stage 1 through stage 4 chronic kidney disease, or unspecified chronic kidney disease; F10.20 Alcohol dependence, uncomplicated; R73.9 Hyperglycemia, unspecified; I48.91 Unspecified atrial fibrillation; N18.30 Chronic kidney disease, stage 3 unspecified; E87.6 Hypokalemia; Z79.899 Other long term (current) drug therapy; Z79.82 Long term (current) use of aspirin
CPT/HCPCS: 31500; 36415; 36416; 36556; 36600; 70450; 71045; 71275; 74177; 80053; 80306; 80307; 81003; 81015; 82010; 82533; 82550; 82553; 82805; 83036; 83605; 83690; 83735; 83880; 84100; 84145; 84443; 84484; 85025; 85379; 85610; 85730; 86140; 86850; 86900; 86901; 87040; 87081; 87086; 87449; 87491; 87591; 87899; 93005; 93010; 93306; 93970; 94002; 94003; 95816; 95819; 95957; 96365; 96366; 96367; 96368; 96375; 99292; C9113; J0171; J0282; J0692; J1644; J1953; J2001; J2704; J3010; J3370; J3411; J3475; J3480; J3490; J7050; J7070; Q9967; U0002

== ENCOUNTER 2022-08-31 17:10 | Inpatient (IN) | payer BC, MEDICARE ==
[2022-08-31] MEDS ORDERED: diphenhydrAMINE 50 MG/ML VIAL IVP PRN (17:21)
[2022-08-31] MEDS ORDERED: Lorazepam 2 MG/ML VIAL SLOW IVP PRN ×3 (17:22→17:27)
[2022-08-31] MEDS ORDERED: Ondansetron PF 4 MG/2 ML Vial IVP PRN (17:25)
[2022-08-31] MEDS ORDERED: Scopolamine 1.5 mg/72 hour Patch TOP PRN (17:30)
[2022-08-31] MEDS ORDERED: Acetaminophen 650 MG Suppository PR PRN (17:30)
[2022-08-31] MEDS ORDERED: Morphine 4 MG/ML VIAL SLOW IVP PRN (17:31)
[2022-08-31] MEDS ORDERED: Morphine 2 MG/ML VIAL SLOW IVP PRN (17:32)
[2022-08-31 19:38] VITALS: BP 128/85; TEMP 101.3
== END 2022-08-31 18:04 | disposition expired | DRG 951 ==
LOC: CCU 17:10
PROVIDERS: ADMIT Internal Medicine Nephrology; ATTEND Internal Medicine Nephrology
DX: Z51.5 Encounter for palliative care (principal); J96.01 Acute respiratory failure with hypoxia; J69.0 Pneumonitis due to inhalation of food and vomit; N17.9 Acute kidney failure, unspecified; N39.0 Urinary tract infection, site not specified; I73.9 Peripheral vascular disease, unspecified; I25.10 Atherosclerotic heart disease of native coronary artery without angina pectoris; K43.9 Ventral hernia without obstruction or gangrene; N18.9 Chronic kidney disease, unspecified; E87.6 Hypokalemia; R73.9 Hyperglycemia, unspecified; I12.9 Hypertensive chronic kidney disease with stage 1 through stage 4 chronic kidney disease, or unspecified chronic kidney disease; Z87.891 Personal history of nicotine dependence
CPT/HCPCS: J2060; J2270